=== PATIENT | female | born 2000 | race African-American/Black ===

== ENCOUNTER 2021-09-20 12:21 | Emergency (ER) | payer OTHER ==
[~2021-09-20] VITALS: Ht 154.9 cm; Wt 53.1 kg
== END 2021-09-20 15:46 | disposition home or self-care (01) ==
LOC: FSED 12:26
DX: S63.501A Unspecified sprain of right wrist, initial encounter (principal); X58.XXXA Exposure to other specified factors, initial encounter; Y93.02 Activity, running; Y92.009 Unspecified place in unspecified non-institutional (private) residence as the place of occurrence of the external cause; Y99.8 Other external cause status
CPT/HCPCS: 99283

== ENCOUNTER 2021-10-07 17:06 | Emergency (ER) | payer OTHER ==
[~2021-10-07] VITALS: Ht 154.9 cm; Wt 52.2 kg
[2021-10-07] MEDS ORDERED: MEDROL4 MG PO (17:41)
[2021-10-07] MEDS ORDERED: AZITHROMYCIN250 MG PO (17:41)
[2021-10-07] MEDS ORDERED: VENTOLIN HFA18 GM INH (17:41)
== END 2021-10-07 17:50 | disposition home or self-care (01) ==
LOC: FSED 17:27
DX: R05.9 Cough, unspecified (principal); J06.9 Acute upper respiratory infection, unspecified; K21.9 Gastro-esophageal reflux disease without esophagitis; F17.210 Nicotine dependence, cigarettes, uncomplicated
CPT/HCPCS: 99282